=== PATIENT | female | born 1990 | race Caucasian/White ===

== ENCOUNTER 2022-05-06 23:35 | Emergency (ER) | payer SELFPAY ==
[~2022-05-06] VITALS: Ht 165.1 cm; Wt 71.2 kg
[2022-05-06 23:43] VITALS: BP 110/83
== END 2022-05-07 09:38 | disposition home or self-care (01) ==
LOC: ED 23:35
DX: S52.122A Displaced fracture of head of left radius, initial encounter for closed fracture (principal); F17.210 Nicotine dependence, cigarettes, uncomplicated; W01.0XXA Fall on same level from slipping, tripping and stumbling without subsequent striking against object, initial encounter
CPT/HCPCS: J1885; J3010